=== PATIENT | male | born 1965 | race African-American/Black ===

== ENCOUNTER 2018-01-31 19:07 | Inpatient (IN) | payer OTHER ==
[2018-01-31 19:31] VITALS: BMI 21.6
[2018-01-31] MEDS ORDERED: MELATONIN 5 MG TABLETS PO PRN (22:00)
--- NOTE | 2018-01-31 22:44 | HP ---
CIWA Score - CIWA Score Nausea/Vomitin-No Nausea/No Vomiting Muscle Tremors: 3 Anxiety: 1-Mildly Anxious Agitation: 2 Paroxysmal Sweats: 2 Orientation: 1-Uncertain about Date Tacttile Disturbances: 0-None Auditory Disturbances: 0-None Visual Disturbances: 2-Mild Sensitivity Headache: 0-None Present CIWA-Ar Total Score: 11 Admission ROS BHS - HPI Chief Complaint: alcohol withdrawal sx Allergies/Adverse Reactions: Allergies Allergy/AdvReac Type Severity Reaction Status Date / Time No Known Allergies Allergy Verified 01/31/18 21:55 History of Present Illness: 52 yo male with hx of nicotine, cocaine, marijuana and alcohol dependnece is here seeking detox. PMHX: depression, insomnia, denies any other medical or psychiatric denies suicidal / homicidla dieiton or suicie attempts Last detox 10 yeras ago, [facility] Longest period of sobrierity 15 years Exam Limitations: No Limitations - Ebola screening Have you been sick,other than usual withdrawal symptoms: No - Review of Systems Constitutional: Chills, Loss of Appetite, Changes in sleep, Unintentional Wgt. Loss (20 lbs) EENT: reports: Blurred Vision (uses glasses) Respiratory: reports: No Symptoms reported Cardiac: reports: No Symptoms Reported GI: reports: No Symptoms Reported : reports: No Symptoms Reported Musculoskeletal: reports: Back Pain, Joint Pain Integumentary: reports: No Symptoms Reported Neuro: reports: No Symptoms reported Endocrine: reports: Increased Thirst Hematology: reports: No Symptoms Reported Psychiatric: reports: Orientated x3, Depressed Other Systems: Reviewed and Negative Patient History - Patient Medical History Hx Anemia: No Hx Asthma: No Hx Chronic Obstructive Pulmonary Disease (COPD): No Hx Cancer: No Hx Cardiac Disorders: No Hx Congestive Heart Failure: No Hx Hypertension: No Hx Hypercholesterolemia: No Hx Pacemaker: No HX Cerebrovascular Accident: No Hx Seizures: No Hx Dementia: No Hx Diabetes: No Hx Gastrointestinal Disorders: No Hx Liver Disease: No Hx Genitourinary Disorders: No Hx Sexually Transmitted Disorders: No Hx Renal Disease (ESRD): No Hx Thyroid Disease: No Hx Human Immunodeficiency Virus (HIV): No (Aleksandra 2018, declines testing today ) Hx Hepatitis C: No Hx Depression: Yes Hx Suicide Attempt: No Hx Bipolar Disorder: No Hx Schizophrenia: No - Patient Surgical History Past Surgical History: Yes Hx Neurologic Surgery: No Hx Cataract Extraction: No Hx Cardiac Surgery: No Hx Lung Surgery: No Hx Breast Surgery: No Hx Breast Biopsy: No Hx Abdominal Surgery: No Hx Appendectomy: No Hx Cholecystectomy: No Hx Genitourinary Surgery: No Hx Section: No Hx Orthopedic Surgery: No Other Surgical History: HERNIA REPAIR 25YRS AGO Anesthesia Reaction: No - PPD History Previous Implant?: No Documented Results: Negative w/o proof PPD to be Administered?: Yes - Reproductive History Patient is a Female of Child Bearing Age (11 -55 yrs old): No - Smoking Cessation Smoking history: Current every day smoker Have you smoked in the past 12 months: Yes Aproximately how many cigarettes per day: 10 Hx Chewing Tobacco Use: No Initiated information on smoking cessation: Yes 'Breaking Loose' booklet given: 01/31/18 - Substance & Tx. History Hx Alcohol Use: Yes Hx Substance Use: Yes Substance Use Type: Alcohol, Cocaine Hx Substance Use Treatment: Yes ([facility] 10 years ago) - Substances Abused Alcohol Route: Oral Frequency: Daily Amount used: LIQUOR- 1 PINT, BEER 1 SIX PACK Age of first use: 15 Date of Last Use: 01/31/18 Marijuana/Hashish Route: Smoking Frequency: Daily Amount used: 1 BLUNT Age of first use: 15 Date of Last Use: 01/30/18 Cocaine Route: Smoking Frequency: Daily Amount used: $80 WORTH Age of first use: 15 Date of Last Use: 01/30/18 Family Disease History - Family Disease History Family Disease History: Heart Disease: Mother (HTN), Other: Father (decrease, alcoholism ), Mother Admission Physical Exam [facility] - Vital Signs Vital Signs: Vital Signs - 24 hr 01/31/18 19:21 Temperature 96.6 F L Pulse Rate 79 Respiratory 20 Rate Blood Pressure 114/70 - Physical General Appearance: Yes: Appropriately Dressed, Thin, Tremorous, Irritable HEENTM: Yes: Within Normal Limits, EOMI, Hearing grossly Normal, Normal ENT Inspection, Normocephalic, Normal Voice, Pharynx Normal, Tm's normal Respiratory: Yes: Chest Non-Tender, Lungs Clear, Normal Breath Sounds, No Respiratory Distress, No Accessory Muscle Use Neck: Yes: Within Normal Limits Breast: Yes: Breast Exam Deferred Cardiology: Yes: Regular Rhythm, Regular Rate Abdominal: Yes: Normal Bowel Sounds, Non Tender, Flat Genitourinary: Yes: Within Normal Limits Musculoskeletal: Yes: full range of Motion, Gait Steady, Pelvis Stable, Back pain Neurological: Yes: cotton grader II-XII NML intact, Fully Oriented, Alert, Motor Strength 5/5, Depressed Affect Integumentary: Yes: Normal Color, Moist Lymphatic: Yes: Within Normal Limits Cleared for Admission [facility] - Detox or Rehab [facility] Level of Care: Medically Supervised Detox Regimen/Protocol: Librium [facility] Breath Alcohol Content Breath Alcohol Content: 0 Urine Drug Screen - Results Drug Screen Negative: No Urine Drug Screen Results: THC-Marijuana, EVONNE-Cocaine
[2018-01-31] MEDS ORDERED: chlordiazePOXIDE HCL 25 MG CAPSULE PO PRN (22:47)
[2018-01-31] MEDS ORDERED: IBUPROFEN 400 MG TABLET (FP) PO PRN (22:47)
[2018-01-31] MEDS ORDERED: MAG HYDROX/AL HYDROX/SIMETH 30 ML UNIT-DOSE CUP PO PRN (22:47)
[2018-01-31] MEDS ORDERED: chlordiazePOXIDE HCL 25 MG CAPSULE PO ONE (22:47)
[2018-01-31] MEDS ORDERED: NICOTINE POLACRILEX 2 MG GUM BC PRN (22:47)
[2018-01-31] MEDS ORDERED: ACETAMINOPHEN 325 MG TABLET (FP) PO PRN (22:47)
[2018-01-31] MEDS ORDERED: LOPERAMIDE HCL 2 MG CAPSULE PO PRN (22:47)
[2018-01-31] MEDS ORDERED: P-EPHED 60MG/TRIPROLIDI 2.5MG TABLET PO PRN (22:47)
[2018-01-31] MEDS ORDERED: MAGNESIUM HYDROX 2400MG/30ML ORAL SUSPENSION 30 ML CUP PO PRN (22:47)
[2018-01-31] MEDS ORDERED: hydrOXYzine PAMOATE 50 MG CAPSULE (FP) PO PRN (22:47)
[2018-01-31] MEDS ORDERED: guaiFENesin/D-METHORPHAN HB 10 ML UNIT-DOSE CUPS PO PRN (22:47)
[2018-01-31] MEDS ORDERED: MENTHOL/PHENOL 1 EACH UD MM PRN (22:47)
[2018-01-31] MEDS ORDERED: MAGNESIUM CITRATE 300 ML BOTTLE PO PRN (22:47)
[2018-01-31] MEDS: chlordiazePOXIDE HCL 25 MG CAPSULE PO SCH (23:54)
[2018-02-01 03:06] LABS: URINE APPEARANCE TURBID; URINE BILIRUBIN NEGATIVE (<2.0 mg/dL); URINE BLOOD NEGATIVE (NEGATIVE); URINE COLOR YELLOW; URINE GLUCOSE (UA) NEGATIVE (NEGATIVE); URINE KETONE TRACE (NEGATIVE); URINE NITRITE NEGATIVE (NEGATIVE); URINE PROTEIN NEGATIVE (NEGATIVE)
[2018-02-01 03:16] LABS: URINE LEUK ESTERASE 3+ (NEGATIVE)
[2018-02-01] MEDS: chlordiazePOXIDE HCL 25 MG CAPSULE PO SCH ×4 (05:51→23:07)
--- NOTE | 2018-02-01 10:24 | EKG ---
Test Reason : Blood Pressure : / mmHG Vent. Rate : 054 BPM Atrial Rate : 054 BPM P-R Int : 142 ms QRS Dur : 096 ms QT Int : 446 ms P-R-T Axes : 081 081 073 degrees QTc Int : 422 ms SINUS BRADYCARDIA RIGHT ATRIAL ENLARGEMENT BORDERLINE ECG NO PREVIOUS ECGS AVAILABLE Confirmed by MD NUNO, ROCHELLE ([id number]) on 02/01/2018 10:23:45 AM Referred By: Confirmed By:ROCHELLE REINA MD
[2018-02-01 10:25] LABS: HEMATOCRIT 41.6 % (35.4-49); MCH 30.8 pg (25.7-33.7); MCHC 33.7 g/dl (32.0-35.9); MEAN CELL VOLUME 91.4 fl (80-96); MEAN PLT VOLUME 7.1 fl (7.5-11.1); PLATELET COUNT 241 K/MM3 (134-434); RBC 4.55 M/mm3 (4.00-5.60); RDW 14.2 % (11.9-15.9); WHITE BLOOD COUNT 3.6 K/mm3 (4.0-10.0)
--- NOTE | 2018-02-01 10:33 | PN ---
S CIWA - CIWA Score Nausea/Vomitin-No Nausea/No Vomiting Muscle Tremors: 4-Moderate,w/Arms Extend Anxiety: 4-Mod. Anxious/Guarded Agitation: 4-Moderately Restless Paroxysmal Sweats: 1-Minimal Palms Moist Orientation: 0-Oriented Tacttile Disturbances: 0-None Auditory Disturbances: 0-None Visual Disturbances: 0-None Headache: 0-None Present CIWA-Ar Total Score: 13 BHS Progress Note (SOAP) Subjective: ANXIETY,TREMORS,BODY ACHES,FATIGUE. Objective: 02/01/18 10:32 Vital Signs Temperature 98.2 F 02/01/18 09:53 Pulse Rate 56 L 02/01/18 09:53 Respiratory Rate 18 02/01/18 09:53 Blood Pressure 95/60 02/01/18 09:53 O2 Sat by Pulse Oximetry (%) Laboratory Tests 01/31/18 02/01/18 23:30 07:30 WBC 3.6 L RBC 4.55 Hgb 14.0 Hct 41.6 MCV 91.4 MCH 30.8 MCHC 33.7 RDW 14.2 Plt Count 241 MPV 7.1 L Urine Color Yellow Urine Appearance Turbid Urine pH 5.0 Ur Specific [place] 1.030 Urine Protein Negative Urine Glucose (UA) Negative Urine Ketones Trace H Urine Blood Negative Urine Nitrite Negative Urine Bilirubin Negative Urine Urobilinogen 2.0 Ur Leukocyte Esterase 3+ H Urine WBC (Auto) None Urine RBC (Auto) None Assessment: 02/01/18 10:33 WITHDRAWAL SX Plan: CONTINUE DETOX INCREASE PO FLUIDS
[2018-02-01] MEDS: PRENATAL VITAMINS W/ FOLIC ACID TABLET (FP) PO SCH (10:38)
[2018-02-01] MEDS: NICOTINE 14 MG/24 HOURS TOPICAL PATCH TD SCH (10:38)
[2018-02-01 11:08] LABS: ANION GAP 4 (8-16); BILIRUBIN,TOTAL 0.4 mg/dL (0.2-1.0); BLOOD UREA NITROGEN 22 mg/dL (7-18); CHLORIDE 108 mmol/L (98-107); CO2 30 mmol/L (21-32); GLUCOSE,RANDOM 124 mg/dL (74-106); POTASSIUM 4.2 mmol/L (3.5-5.1); SGOT/AST 19 U/L (15-37); SGPT/ALT 29 U/L (12-78); SODIUM 142 mmol/L (136-145); TOT PROT 5.6 g/dl (6.4-8.2)
[2018-02-01 11:09] LABS: ALK PHOS 67 U/L (45-117)
[2018-02-01] MEDS: LIDOCAINE 5% TOPICAL PATCH TP SCH (12:18)
--- NOTE | 2018-02-01 13:46 | CONSULT ---
[facility] Psychiatric Consult - Data Date of interview: 02/01/18 Admission source: [facility] Identifying data: First admission to [facility] for this 52 y/o AA male seeking detox treatment on for alcohol,cannabis and cocaine (crack) dependence.Patient is ,a father of five,domiciled and currently employed. Substance Abuse History: Confirmed by patient in this session.Details in current [facility] report : Smoking history: Current every day smoker. Have you smoked in the past 12 months: Yes. Aproximately how many cigarettes per day: 10. Hx Chewing Tobacco Use: No. Initiated information on smoking cessation: Yes. 'Breaking Loose' booklet given: 01/31/18. - Substance & Tx. History. Hx Alcohol Use: Yes. Hx Substance Use: Yes. Substance Use Type: Alcohol, Cocaine. Hx Substance Use Treatment: Yes ([facility] 10 years ago). - Substances Abused. Alcohol. Route: Oral. Frequency: Daily. Amount used: LIQUOR- 1 PINT, BEER 1 SIX PACK. Age of first use: 15. Date of Last Use: 01/31. Marijuana/Hashish. Route: Smoking. Frequency: Daily. Amount used: 1 BLUNT. Age of first use: 15. Date of Last Use: 01/30/18. Cocaine. Route: Smoking. Frequency: Daily. Amount used: $80 WORTH. Age of first use: 15. Date of Last Use: 01/30/18 Medical History: Patient endorses good general health. Psychiatric History: Patient denies. Physical/Sexual Abuse/Trauma History: Patient denies. Additional Comment: Urine Drug Screen Results: THC-Marijuana, EVONNE-Cocaine.Noted. Mental Status Exam - Mental Status Exam Alert and Oriented to: Time, Place, Person Cognitive Function: Good Patient Appearance: Well Groomed Mood: Hopeful, Euthymic Affect: Appropriate, Normal Range Patient Behavior: Fatigued, Appropriate, Cooperative Speech Pattern: Clear, Appropriate Voice Loudness: Normal Thought Process: Intact, Goal Oriented Thought Disorder: Not Present Hallucinations: Denies Suicidal Ideation: Denies Homicidal Ideation: Denies Insight/Judgement: Poor Sleep: Poorly, Difficulty falling asleep Appetite: Good Muscle strength/Tone: Normal Gait/Station: Normal Psychiatric Findings - Problem List ([place] 1, 2,3) (1) Alcohol dependence with withdrawal Current Visit: Yes Status: Acute Qualifiers: Complication of substance-induced condition: uncomplicated Qualified Code(s ): F10.230 - Alcohol dependence with withdrawal, uncomplicated (2) Cocaine dependence Current Visit: Yes Status: Acute Qualifiers: Substance use status: uncomplicated Qualified Code(s): F14.20 - Cocaine dependence, uncomplicated (3) Cannabis dependence Current Visit: Yes Status: Acute (4) Nicotine dependence Current Visit: Yes Status: Acute Qualifiers: Nicotine product type: cigarettes Substance use status: in withdrawal Qualified Code(s): F17.213 - Nicotine dependence, cigarettes, with withdrawal (5) Insomnia Current Visit: Yes Status: Acute - Initial Treatment Plan Initial Treatment Plan: Psychoeducation provided in this session.Sleep hygiene.Detoxification in progress.Ambien 10 mg po hs prn.Ordered.Patient is made aware of the potential for parasomnias (sleep-walking).Mr Marquez is in agreement with this careplan.Observation.
[2018-02-01] MEDS: THIAMINE HCL 100 MG TABLET (FP) PO SCH (23:06)
[2018-02-01] MEDS: ZOLPIDEM TARTRATE 10 MG TABLET (PARK CARE ONLY) PO PRN (23:07)
[2018-02-01] MEDS: LIDOCAINE PATCH REMOVAL MC SCH (23:08)
[2018-02-02] MEDS: chlordiazePOXIDE HCL 25 MG CAPSULE PO SCH ×3 (05:20→17:50)
[2018-02-02] MEDS: NICOTINE 14 MG/24 HOURS TOPICAL PATCH TD SCH (10:51)
[2018-02-02] MEDS: LIDOCAINE 5% TOPICAL PATCH TP SCH (10:51)
[2018-02-02] MEDS: PRENATAL VITAMINS W/ FOLIC ACID TABLET (FP) PO SCH (10:51)
--- NOTE | 2018-02-02 12:15 | PN ---
[facility] CIWA - CIWA Score Nausea/Vomitin-No Nausea/No Vomiting Muscle Tremors: 4-Moderate,w/Arms Extend Anxiety: 4-Mod. Anxious/Guarded Agitation: 3 Paroxysmal Sweats: 1-Minimal Palms Moist Orientation: 0-Oriented Tacttile Disturbances: 3-Moderate Itch/Numb/Burn Auditory Disturbances: 0-None Visual Disturbances: 0-None Headache: 0-None Present CIWA-Ar Total Score: 15 S Progress Note (SOAP) Subjective: ANXIETY,SWEATS,TREMORS,INTERMITTENT SLEEP. Objective: 02/02/18 12:14 Vital Signs Temperature 97.4 F L 02/02/18 10:21 Pulse Rate 64 02/02/18 10:21 Respiratory Rate 18 02/02/18 10:21 Blood Pressure 153/100 02/02/18 10:21 O2 Sat by Pulse Oximetry (%) Laboratory Last Values WBC 3.6 K/mm3 (4.0-10.0) L 02/01/18 07:30 RBC 4.55 M/mm3 (4.00-5.60) 02/01/18 07:30 Hgb 14.0 GM/dL (11.7-16.9) 02/01/18 07:30 Hct 41.6 % (35.4-49) 02/01/18 07:30 MCV 91.4 fl (80-96) 02/01/18 07:30 MCH 30.8 pg (25.7-33.7) 02/01/18 07:30 MCHC 33.7 g/dl (32.0-35.9) 02/01/18 07:30 RDW 14.2 % (11.9-15.9) 02/01/18 07:30 Plt Count 241 K/MM3 (134-434) 02/01/18 07:30 MPV 7.1 fl (7.5-11.1) L 02/01/18 07:30 Sodium 142 mmol/L (136-145) 02/01/18 07:30 Potassium 4.2 mmol/L (3.5-5.1) 02/01/18 07:30 Chloride 108 mmol/L (98-107) H 02/01/18 07:30 Carbon Dioxide 30 mmol/L (21-32) 02/01/18 07:30 Anion Gap 4 (8-16) L 02/01/18 07:30 BUN 22 mg/dL (7-18) H 02/01/18 07:30 Creatinine 1.0 mg/dL (0.7-1.3) 02/01/18 07:30 Creat Clearance w eGFR > 60 (>60) 02/01/18 07:30 Random Glucose 124 mg/dL (74-106) H 02/01/18 07:30 Calcium 8.0 mg/dL (8.5-10.1) L 02/01/18 07:30 Total Bilirubin 0.4 mg/dL (0.2-1.0) 02/01/18 07:30 AST 19 U/L (15-37) 02/01/18 07:30 ALT 29 U/L (12-78) 02/01/18 07:30 Alkaline Phosphatase 67 U/L (45-117) 02/01/18 07:30 Total Protein 5.6 g/dl (6.4-8.2) L 02/01/18 07:30 Albumin 3.0 g/dl (3.4-5.0) L 02/01/18 07:30 Urine Color Yellow 01/31/18 23:30 Urine Appearance Turbid 01/31/18 23:30 Urine pH 5.0 (5.0-8.0) 01/31/18 23:30 Ur Specific [place] 1.030 (1.001-1.035) 01/31/18 23:30 Urine Protein Negative (NEGATIVE) 01/31/18 23:30 Urine Glucose (UA) Negative (NEGATIVE) 01/31/18 23:30 Urine Ketones Trace (NEGATIVE) H 01/31/18 23:30 Urine Blood Negative (NEGATIVE) 01/31/18 23:30 Urine Nitrite Negative (NEGATIVE) 01/31/18 23:30 Urine Bilirubin Negative (<2.0 mg/dL) 01/31/18 23:30 Urine Urobilinogen 2.0 mg/dL (0.2-1.0) 01/31/18 23:30 Ur Leukocyte Esterase 3+ (NEGATIVE) H 01/31/18 23:30 Urine WBC (Auto) None /hpf (3-5) 01/31/18 23:30 Urine RBC (Auto) None /hpf (0-3) 01/31/18 23:30 RPR Titer Nonreactive (NONREACTIVE) 02/01/18 07:30 LABS NOTED Assessment: 02/02/18 12:14 WITHDRAWAL SX Plan: CONTINUE DETOX REPEAT UA
[2018-02-02 16:57] LABS: URINE APPEARANCE SLCLOUDY; URINE BILIRUBIN NEGATIVE (<2.0 mg/dL); URINE BLOOD NEGATIVE (NEGATIVE); URINE COLOR YELLOW; URINE GLUCOSE (UA) NEGATIVE (NEGATIVE); URINE KETONE NEGATIVE (NEGATIVE); URINE NITRITE NEGATIVE (NEGATIVE); URINE PROTEIN NEGATIVE (NEGATIVE); URINE UROBILINOGEN NEGATIVE mg/dL (0.2-1.0)
[2018-02-02 17:16] LABS: URINE LEUK ESTERASE 1+ (NEGATIVE)
[2018-02-02 17:27] LABS: EPI CELLS RARE /HPF (FEW); URINE MUCUS RARE
[2018-02-02] MEDS: LIDOCAINE PATCH REMOVAL MC SCH (22:16)
[2018-02-02] MEDS: chlordiazePOXIDE 5 MG CAPSULE PO SCH (22:17)
[2018-02-02] MEDS: THIAMINE HCL 100 MG TABLET (FP) PO SCH (22:18)
[2018-02-03] MEDS: chlordiazePOXIDE 5 MG CAPSULE PO SCH ×2 (05:37→10:40)
[2018-02-03] MEDS: NICOTINE 14 MG/24 HOURS TOPICAL PATCH TD SCH (10:40)
[2018-02-03] MEDS: PRENATAL VITAMINS W/ FOLIC ACID TABLET (FP) PO SCH (10:40)
[2018-02-03] MEDS: LIDOCAINE 5% TOPICAL PATCH TP SCH (10:40)
[2018-02-03] MEDS: chlordiazePOXIDE HCL 10 MG CAPSULE PO SCH ×3 (11:07→22:11)
--- NOTE | 2018-02-03 13:07 | PN ---
BHS Progress Note (SOAP) Subjective: DECREASED ANXIETY, SWEATS. Objective: 02/03/18 13:04 Vital Signs Temperature 96.9 F L 02/03/18 09:30 Pulse Rate 77 02/03/18 09:30 Respiratory Rate 20 02/03/18 09:30 Blood Pressure 102/66 02/03/18 09:30 O2 Sat by Pulse Oximetry (%) Laboratory Tests 01/31/18 02/01/18 02/01/18 23:30 07:30 07:30 WBC 3.6 L RBC 4.55 Hgb 14.0 Hct 41.6 MCV 91.4 MCH 30.8 MCHC 33.7 RDW 14.2 Plt Count 241 MPV 7.1 L Sodium 142 Potassium 4.2 Chloride 108 H Carbon Dioxide 30 Anion Gap 4 L BUN 22 H Creatinine 1.0 Creat Clearance w eGFR > 60 Random Glucose 124 H Calcium 8.0 L Total Bilirubin 0.4 AST 19 ALT 29 Alkaline Phosphatase 67 Total Protein 5.6 L Albumin 3.0 L Urine Color Yellow Urine Appearance Turbid Urine pH 5.0 Ur Specific [place] 1.030 Urine Protein Negative Urine Glucose (UA) Negative Urine Ketones Trace H Urine Blood Negative Urine Nitrite Negative Urine Bilirubin Negative Urine Urobilinogen 2.0 Ur Leukocyte Esterase 3+ H Urine WBC (Auto) None Urine RBC (Auto) None Ur Epithelial Cells Urine Mucus RPR Titer 02/01/18 02/02/18 07:30 13:20 WBC RBC Hgb Hct MCV MCH MCHC RDW Plt Count MPV Sodium Potassium Chloride Carbon Dioxide Anion Gap BUN Creatinine Creat Clearance w eGFR Random Glucose Calcium Total Bilirubin AST ALT Alkaline Phosphatase Total Protein Albumin Urine Color Yellow Urine Appearance Slcloudy Urine pH 7.0 D Ur Specific [place] 1.020 Urine Protein Negative Urine Glucose (UA) Negative Urine Ketones Negative Urine Blood Negative Urine Nitrite Negative Urine Bilirubin Negative Urine Urobilinogen Negative Ur Leukocyte Esterase 1+ H D Urine WBC (Auto) 44 Urine RBC (Auto) 5 Ur Epithelial Cells Rare Urine Mucus Rare RPR Titer Nonreactive LABS NOTED. Assessment: 02/03/18 13:05 WITHDRAWAL SX Plan: CONTINUE DETOX
[2018-02-03] MEDS: LIDOCAINE PATCH REMOVAL MC SCH (22:11)
[2018-02-03] MEDS: THIAMINE HCL 100 MG TABLET (FP) PO SCH (22:11)
[2018-02-03] MEDS: ZOLPIDEM TARTRATE 10 MG TABLET (PARK CARE ONLY) PO PRN (22:13)
[2018-02-03] MEDS ORDERED: chlordiazePOXIDE HCL 10 MG CAPSULE PO SCH (23:00)
[2018-02-04] MEDS: chlordiazePOXIDE HCL 10 MG CAPSULE PO SCH (07:00)
[2018-02-04 09:12] VITALS: BP 115/80; PULSE 98; TEMP 98.5
--- NOTE | 2018-02-04 12:30 | DS ---
[facility] Detox Discharge Summary Admission Date: 01/31/18 Discharge Date: 02/04/18 - History Present History: Alcohol Dependence, Cocaine Dependence Additional Comments: DETOX COMPLETED. Pertinent Past History: PLEASE SEE DX BELOW - Physical Exam Results Vital Signs: Vital Signs Temperature 98.5 F 02/04/18 09:11 Pulse Rate 98 H 02/04/18 09:11 Respiratory Rate 20 02/04/18 09:11 Blood Pressure 115/80 02/04/18 09:11 O2 Sat by Pulse Oximetry (%) Pertinent Admission Physical Exam Findings: WITHDRAWAL SX Laboratory Tests 01/31/18 02/01/18 02/01/18 23:30 07:30 07:30 WBC 3.6 L RBC 4.55 Hgb 14.0 Hct 41.6 MCV 91.4 MCH 30.8 MCHC 33.7 RDW 14.2 Plt Count 241 MPV 7.1 L Sodium 142 Potassium 4.2 Chloride 108 H Carbon Dioxide 30 Anion Gap 4 L BUN 22 H Creatinine 1.0 Creat Clearance w eGFR > 60 Random Glucose 124 H Calcium 8.0 L Total Bilirubin 0.4 AST 19 ALT 29 Alkaline Phosphatase 67 Total Protein 5.6 L Albumin 3.0 L Urine Color Yellow Urine Appearance Turbid Urine pH 5.0 Ur Specific [place] 1.030 Urine Protein Negative Urine Glucose (UA) Negative Urine Ketones Trace H Urine Blood Negative Urine Nitrite Negative Urine Bilirubin Negative Urine Urobilinogen 2.0 Ur Leukocyte Esterase 3+ H Urine WBC (Auto) None Urine RBC (Auto) None Ur Epithelial Cells Urine Mucus RPR Titer 02/01/18 02/02/18 07:30 13:20 WBC RBC Hgb Hct MCV MCH MCHC RDW Plt Count MPV Sodium Potassium Chloride Carbon Dioxide Anion Gap BUN Creatinine Creat Clearance w eGFR Random Glucose Calcium Total Bilirubin AST ALT Alkaline Phosphatase Total Protein Albumin Urine Color Yellow Urine Appearance Slcloudy Urine pH 7.0 D Ur Specific [place] 1.020 Urine Protein Negative Urine Glucose (UA) Negative Urine Ketones Negative Urine Blood Negative Urine Nitrite Negative Urine Bilirubin Negative Urine Urobilinogen Negative Ur Leukocyte Esterase 1+ H D Urine WBC (Auto) 44 Urine RBC (Auto) 5 Ur Epithelial Cells Rare Urine Mucus Rare RPR Titer Nonreactive - Treatment Hospital Course: Detox Protocol Followed, Detoxed Safely, Responded well, Discharged Condition Good - Medication Discharge Medications: Ambulatory Orders NK [No Known Home Medication] 01/31/18 - Diagnosis (1) Alcohol dependence with withdrawal Status: Acute Qualifiers: Complication of substance-induced condition: uncomplicated Qualified Code(s ): F10.230 - Alcohol dependence with withdrawal, uncomplicated (2) Back pain Status: Chronic Qualifiers: Back pain location: low back pain (3) Cocaine dependence Status: Acute Qualifiers: Substance use status: uncomplicated Qualified Code(s): F14.20 - Cocaine dependence, uncomplicated (4) Nicotine dependence Status: Acute Qualifiers: Nicotine product type: cigarettes Substance use status: in withdrawal Qualified Code(s): F17.213 - Nicotine dependence, cigarettes, with withdrawal (5) Weight loss Status: Acute - AMA Did Patient Leave Against Medical Advice: No
== END 2018-02-04 09:09 | disposition home or self-care (01) | DRG 775 ==
LOC: YASAS 19:07 → Y3N 21:52
PROVIDERS: ADMIT Internal Medicine; ATTEND Internal Medicine
PROC: HZ2ZZZZ Detoxification Services for Substance Abuse Treatment (ICD-10-PCS; principal; 2018-01-31)
DX: F10.230 Alcohol dependence with withdrawal, uncomplicated (principal); F12.20 Cannabis dependence, uncomplicated; F17.210 Nicotine dependence, cigarettes, uncomplicated; F32.9 Major depressive disorder, single episode, unspecified; G47.00 Insomnia, unspecified; M54.5 Low back pain; R63.4 Abnormal weight loss; Z68.21 Body mass index [BMI] 21.0-21.9, adult
CPT/HCPCS: 36415; 80053; 81003; 81015; 85027; 86593; 93005; 93010

== ENCOUNTER 2019-04-30 13:03 | Inpatient (IN) | payer SELFPAY ==
[2019-04-30 14:10] VITALS: BMI 24.0
--- NOTE | 2019-04-30 16:27 | HP ---
CIWA Score Nausea/Vomitin-Mild Nausea/No Vomiting Muscle Tremors: 2 Anxiety: 2 Agitation: 2 Paroxysmal Sweats: 2 Orientation: 0-Oriented Tacttile Disturbances: 0-None Auditory Disturbances: 1-Very Mild Visual Disturbances: 1-Very Mild Sensitivity Headache: 1-Very Mild CIWA-Ar Total Score: 12 - Admission Criteria [facility]ASAS Guidelines: Admission for Medically Managed Detox: Requires at least one of the followin. CIWA greater than 12 2. Seizures within the past 24 hours 3. Delirium tremens within the past 24 hours 4. Hallucinations within the past 24 hours 5. Acute intervention needed for co occurring medical disorder 6. Acute intervention needed for co occurring psychiatric disorder 7. Severe withdrawal that cannot be handled at a lower level of care (continued vomiting, continued diarrhea, abnormal vital signs) requiring intravenous medication and/or fluids 8. Patient presents the following: CIWA greater than 12 Admission Criteria Met: Admission criteria met Admission ROS BHS - HPI Chief Complaint: i need to do this Allergies/Adverse Reactions: Allergies Allergy/AdvReac Type Severity Reaction Status Date / Time No Known Allergies Allergy Verified 04/30/19 13:55 History of Present Illness: 53 YO MALE WITH >20 Y CUMULATIVE ABSTINENCE FROM SUBSTANCES PRESENTS WITH 1 Y PERIOD OF ETOH AND COCAINE USE SP RELAPSE USING 60$ COCAINE AND 8 BERRS DAILY STEADY PATTERN - Ebola screening Have you traveled outside of the country in the last 21 days: No (N) Have you had contact with anyone from an Ebola affected area: No Do you have a fever: No - Review of Systems Constitutional: Unintentional Wgt. Loss EENT: reports: No Symptoms Reported Respiratory: reports: No Symptoms reported Cardiac: reports: No Symptoms Reported GI: reports: Nausea : reports: No Symptoms Reported Musculoskeletal: reports: No Symptoms Reported Integumentary: reports: No Symptoms Reported Neuro: reports: No Symptoms reported Endocrine: reports: No Symptoms Reported Hematology: reports: No Symptoms Reported Psychiatric: reports: Anxious Patient History - Patient Medical History Hx Anemia: No Hx Asthma: No Hx Chronic Obstructive Pulmonary Disease (COPD): No Hx Cancer: No Hx Cardiac Disorders: No Hx Congestive Heart Failure: No Hx Hypertension: No Hx Hypercholesterolemia: No Hx Pacemaker: No HX Cerebrovascular Accident: No Hx Seizures: No Hx Dementia: No Hx Diabetes: No Hx Gastrointestinal Disorders: No Hx Liver Disease: No Hx Genitourinary Disorders: No Hx Sexually Transmitted Disorders: No Hx Renal Disease (ESRD): No Hx Thyroid Disease: No Hx Human Immunodeficiency Virus (HIV): No (Aleksandra 2018, declines testing today ) Hx Hepatitis C: No Hx Depression: Yes Hx Suicide Attempt: No Hx Bipolar Disorder: No Hx Schizophrenia: No - Patient Surgical History Past Surgical History: Yes Hx Neurologic Surgery: No Hx Cataract Extraction: No Hx Cardiac Surgery: No Hx Lung Surgery: No Hx Breast Surgery: No Hx Breast Biopsy: No Hx Abdominal Surgery: No Hx Appendectomy: No Hx Cholecystectomy: No Hx Genitourinary Surgery: No Hx Section: No Hx Orthopedic Surgery: No Other Surgical History: HERNIA REPAIR 25YRS AGO Anesthesia Reaction: No - PPD History Previous Implant?: Yes Date: 02/02/18 - Smoking Cessation Smoking history: Current every day smoker Have you smoked in the past 12 months: Yes Aproximately how many cigarettes per day: 10 Hx Chewing Tobacco Use: No Initiated information on smoking cessation: Yes 'Breaking Loose' booklet given: 04/30/19 - Substances abused Alcohol Substance route: Oral Frequency: Daily Amount used: 1 pint of vodka,7 cans of 12 oz beers Age of first use: 15 Date of last use: 04/30/19 Crack Substance route: Smoking Frequency: Daily Amount used: $60/day Age of first use: 19 Date of last use: 04/29/19 Family Disease History - Family Disease History Family Disease History: Heart Disease: Mother (HTN), Other: Father (decrease, alcoholism ), Mother Admission Physical Exam BHS - Vital Signs Vital Signs: Vital Signs - 24 hr 04/30/19 04/30/19 13:54 15:02 Temperature 98.5 F 98.5 F Pulse Rate 67 67 Respiratory 18 18 Rate Blood Pressure 109/72 109/72 - Physical General Appearance: Yes: Anxious HEENTM: Yes: EOMI Respiratory: Yes: Lungs Clear Neck: Yes: No masses,lesions,Nodules Breast: Yes: Breast Exam Deferred Cardiology: Yes: Within Normal Limits Abdominal: Yes: Within Normal Limits Genitourinary: Yes: Within Normal Limits Back: Yes: Within Normal Limits Musculoskeletal: Yes: Within Normal Limits Extremities: Yes: Within Normal Limits Neurological: Yes: Within Normal Limits Integumentary: Yes: Within Normal Limits - Diagnostic (1) Alcohol dependence with withdrawal Current Visit: Yes Status: Acute Qualifiers: (2) Cocaine dependence Current Visit: Yes Status: Acute Qualifiers: (3) Nicotine dependence Current Visit: Yes Status: Acute Qualifiers: (4) Weight loss Current Visit: No Status: Acute Cleared for Admission BHS - Detox or Rehab [facility] Level of Care: Medically Supervised Breathalyzer - Breathalyzer Breathalyzer: 0.004 Urine Drug Screen - Test Device Lot number: [id number] Expiration date: 02/07/21 - Control Is test valid?: Yes - Results Drug screen NEGATIVE: No Urine drug screen results: THC-Marijuana, EVONNE-Cocaine, BZO-Benzodiazepines Inpatient Rehab Admission - Rehab Decision to Admit Inpatient rehab admission?: No
[2019-04-30] MEDS ORDERED: MAG HYDROX/AL HYDROX/SIMETH 30 ML UNIT-DOSE CUP PO PRN (16:31)
[2019-04-30] MEDS ORDERED: MAGNESIUM CITRATE 300 ML BOTTLE PO PRN (16:31)
[2019-04-30] MEDS ORDERED: hydrOXYzine PAMOATE 25 MG CAPSULE (FP) PO PRN (16:31)
[2019-04-30] MEDS ORDERED: ACETAMINOPHEN 325 MG TABLET (FP) PO PRN ×2 (16:31)
[2019-04-30] MEDS ORDERED: METHOCARBAMOL 500 MG TABLET PO PRN (16:31)
[2019-04-30] MEDS ORDERED: MAGNESIUM HYDROX 2400MG/30ML ORAL SUSPENSION 30 ML CUP PO PRN (16:31)
[2019-04-30] MEDS ORDERED: IBUPROFEN 400 MG TABLET (FP) PO PRN (16:31)
[2019-04-30] MEDS ORDERED: chlordiazePOXIDE HCL 25 MG CAPSULE PO PRN (16:31)
[2019-04-30] MEDS ORDERED: MENTHOL/PHENOL 1 EACH UD MM PRN (16:31)
[2019-04-30] MEDS ORDERED: BISMUTH SUBSALICYLATE 524 MG/30 ML UD PO PRN (16:31)
[2019-04-30] MEDS: NICOTINE 14 MG/24 HOURS TOPICAL PATCH TD SCH (17:31)
[2019-04-30] MEDS: chlordiazePOXIDE HCL 25 MG CAPSULE PO SCH ×2 (17:31→22:37)
[2019-04-30] MEDS: THIAMINE HCL 100 MG TABLET (FP) PO SCH (22:37)
[2019-05-01] MEDS: chlordiazePOXIDE HCL 25 MG CAPSULE PO SCH ×4 (07:30→22:16)
[2019-05-01] MEDS: PRENATAL VITAMINS W/ FOLIC ACID TABLET (FP) PO SCH (10:45)
[2019-05-01] MEDS: NICOTINE 14 MG/24 HOURS TOPICAL PATCH TD SCH (10:46)
--- NOTE | 2019-05-01 11:23 | PN ---
[facility] CIWA - CIWA Score Nausea/Vomitin-Mild Nausea/No Vomiting Muscle Tremors: 3 Anxiety: 1-Mildly Anxious Agitation: 2 Paroxysmal Sweats: 1-Minimal Palms Moist Orientation: 1-Uncertain about Date Tacttile Disturbances: 1-Very Mild Itch/Numbness Auditory Disturbances: 0-None Visual Disturbances: 0-None Headache: 0-None Present CIWA-Ar Total Score: 10 S Progress Note (SOAP) Subjective: 53 years old male admtted on 04/30/19 for acute alcohol withdrawal sx management doing well with librium detox protocol feeling tired tremor low energy Objective: 05/01/19 11:26 Vital Signs Temperature 97.9 F 05/01/19 10:00 Pulse Rate 83 05/01/19 10:00 Respiratory Rate 18 05/01/19 10:00 Blood Pressure 113/73 05/01/19 10:00 O2 Sat by Pulse Oximetry (%) 05/01/19 11:27 lab pending Assessment: 05/01/19 11:27 alcohol withdrawal sx Plan: continue alcohol detox
[2019-05-01 12:13] LABS: ALBUMIN 3.2 g/dl (3.4-5.0); BILIRUBIN,TOTAL 0.2 mg/dL (0.2-1); CALCIUM 8.3 mg/dL (8.5-10.1); CREATININE 0.9 mg/dL (0.55-1.3); HEMATOCRIT 43.2 % (35.4-49); HEMOGLOBIN 14.3 GM/dL (11.7-16.9); MCH 30.8 pg (25.7-33.7); MCHC 33.1 g/dl (32.0-35.9); MEAN PLT VOLUME 7.3 fl (7.5-11.1); PLATELET COUNT 273 K/MM3 (134-434); POTASSIUM 4.5 mmol/L (3.5-5.1); RBC 4.65 M/mm3 (4.00-5.60); RDW 14.7 % (11.9-15.9); WHITE BLOOD COUNT 4.7 K/mm3 (4.0-10.0)
[2019-05-01] MEDS: THIAMINE HCL 100 MG TABLET (FP) PO SCH (22:16)
[2019-05-01] MEDS: MELATONIN 5 MG TABLETS PO PRN (22:17)
[2019-05-02] MEDS: chlordiazePOXIDE HCL 25 MG CAPSULE PO SCH ×4 (05:48→22:47)
[2019-05-02] MEDS: PRENATAL VITAMINS W/ FOLIC ACID TABLET (FP) PO SCH (10:57)
[2019-05-02] MEDS: NICOTINE 14 MG/24 HOURS TOPICAL PATCH TD SCH (10:57)
--- NOTE | 2019-05-02 12:43 | PN ---
S CIWA - CIWA Score Nausea/Vomitin-No Nausea/No Vomiting Muscle Tremors: 3 Anxiety: 1-Mildly Anxious Agitation: 2 Paroxysmal Sweats: 1-Minimal Palms Moist Orientation: 0-Oriented Tacttile Disturbances: 1-Very Mild Itch/Numbness Auditory Disturbances: 0-None Visual Disturbances: 0-None Headache: 1-Very Mild CIWA-Ar Total Score: 9 S Progress Note (SOAP) Subjective: 53 years old male admitted on 04/30/19 for acute alcohol withdrawal sx management mild tremor tolerate food and fluid well doing ok with librium detox protocol discuss the opportunity of aftercare at [facility] Objective: 05/02/19 12:46 Vital Signs Temperature 96.9 F L 05/02/19 09:24 Pulse Rate 71 05/02/19 09:24 Respiratory Rate 18 05/02/19 09:24 Blood Pressure 101/62 05/02/19 09:24 O2 Sat by Pulse Oximetry (%) Laboratory Last Values WBC 4.7 K/mm3 (4.0-10.0) 05/01/19 07:00 RBC 4.65 M/mm3 (4.00-5.60) 05/01/19 07:00 Hgb 14.3 GM/dL (11.7-16.9) 05/01/19 07:00 Hct 43.2 % (35.4-49) 05/01/19 07:00 MCV 93.0 fl (80-96) 05/01/19 07:00 MCH 30.8 pg (25.7-33.7) 05/01/19 07:00 MCHC 33.1 g/dl (32.0-35.9) 05/01/19 07:00 RDW 14.7 % (11.9-15.9) 05/01/19 07:00 Plt Count 273 K/MM3 (134-434) 05/01/19 07:00 MPV 7.3 fl (7.5-11.1) L 05/01/19 07:00 Sodium 141 mmol/L (136-145) 05/01/19 07:00 Potassium 4.5 mmol/L (3.5-5.1) 05/01/19 07:00 Chloride 108 mmol/L (98-107) H 05/01/19 07:00 Carbon Dioxide 29 mmol/L (21-32) 05/01/19 07:00 Anion Gap 5 MMOL/L (8-16) L 05/01/19 07:00 BUN 16.0 mg/dL (7-18) 05/01/19 07:00 Creatinine 0.9 mg/dL (0.55-1.3) 05/01/19 07:00 Est GFR (CKD-EPI)AfAm 113.41 05/01/19 07:00 Est GFR (CKD-EPI)NonAf 97.85 05/01/19 07:00 Random Glucose 99 mg/dL (74-106) 05/01/19 07:00 Calcium 8.3 mg/dL (8.5-10.1) L 05/01/19 07:00 Total Bilirubin 0.2 mg/dL (0.2-1) 05/01/19 07:00 AST 10 U/L (15-37) L 05/01/19 07:00 ALT 22 U/L (13-61) 05/01/19 07:00 Alkaline Phosphatase 98 U/L (45-117) 05/01/19 07:00 Total Protein 6.0 g/dl (6.4-8.2) L 05/01/19 07:00 Albumin 3.2 g/dl (3.4-5.0) L 05/01/19 07:00 RPR Titer Nonreactive (NONREACTIVE) 05/01/19 07:00 lab noted Assessment: 05/02/19 12:47 alcohol withdrawal sx Plan: continue alcohol detox
[2019-05-02] MEDS: THIAMINE HCL 100 MG TABLET (FP) PO SCH (22:47)
[2019-05-03] MEDS ORDERED: chlordiazePOXIDE HCL 10 MG CAPSULE PO PRN
[2019-05-03] MEDS: chlordiazePOXIDE HCL 10 MG CAPSULE PO SCH ×4 (05:40→22:11)
[2019-05-03] MEDS: PRENATAL VITAMINS W/ FOLIC ACID TABLET (FP) PO SCH (10:27)
[2019-05-03] MEDS: NICOTINE 14 MG/24 HOURS TOPICAL PATCH TD SCH (10:27)
--- NOTE | 2019-05-03 12:52 | PN ---
[facility] CIWA - CIWA Score Nausea/Vomitin-No Nausea/No Vomiting Muscle Tremors: 2 Anxiety: 1-Mildly Anxious Agitation: 2 Paroxysmal Sweats: No Perspiration Orientation: 0-Oriented Tacttile Disturbances: 0-None Auditory Disturbances: 0-None Visual Disturbances: 0-None Headache: 0-None Present CIWA-Ar Total Score: 5 S Progress Note (SOAP) Subjective: feeling better today tolerate food and fluid well good hygiene reported right upper eye lid "a bump" began around 04/28/19 denies pain denies alteration of vision denies trouble close or open right eye right upper eye lid 5 mm round redness raised bump noted no discharge none tender hordeolum warm compress do not irritate the lump if getting worse inform provider or seek ophthelmologist Objective: 05/03/19 12:55 Vital Signs Temperature 97.6 F 05/03/19 09:06 Pulse Rate 75 05/03/19 09:06 Respiratory Rate 18 05/03/19 09:06 Blood Pressure 102/61 05/03/19 09:06 O2 Sat by Pulse Oximetry (%) Laboratory Last Values WBC 4.7 K/mm3 (4.0-10.0) 05/01/19 07:00 RBC 4.65 M/mm3 (4.00-5.60) 05/01/19 07:00 Hgb 14.3 GM/dL (11.7-16.9) 05/01/19 07:00 Hct 43.2 % (35.4-49) 05/01/19 07:00 MCV 93.0 fl (80-96) 05/01/19 07:00 MCH 30.8 pg (25.7-33.7) 05/01/19 07:00 MCHC 33.1 g/dl (32.0-35.9) 05/01/19 07:00 RDW 14.7 % (11.9-15.9) 05/01/19 07:00 Plt Count 273 K/MM3 (134-434) 05/01/19 07:00 MPV 7.3 fl (7.5-11.1) L 05/01/19 07:00 Sodium 141 mmol/L (136-145) 05/01/19 07:00 Potassium 4.5 mmol/L (3.5-5.1) 05/01/19 07:00 Chloride 108 mmol/L (98-107) H 05/01/19 07:00 Carbon Dioxide 29 mmol/L (21-32) 05/01/19 07:00 Anion Gap 5 MMOL/L (8-16) L 05/01/19 07:00 BUN 16.0 mg/dL (7-18) 05/01/19 07:00 Creatinine 0.9 mg/dL (0.55-1.3) 05/01/19 07:00 Est GFR (CKD-EPI)AfAm 113.41 05/01/19 07:00 Est GFR (CKD-EPI)NonAf 97.85 05/01/19 07:00 Random Glucose 99 mg/dL (74-106) 05/01/19 07:00 Calcium 8.3 mg/dL (8.5-10.1) L 05/01/19 07:00 Total Bilirubin 0.2 mg/dL (0.2-1) 05/01/19 07:00 AST 10 U/L (15-37) L 05/01/19 07:00 ALT 22 U/L (13-61) 05/01/19 07:00 Alkaline Phosphatase 98 U/L (45-117) 05/01/19 07:00 Total Protein 6.0 g/dl (6.4-8.2) L 05/01/19 07:00 Albumin 3.2 g/dl (3.4-5.0) L 05/01/19 07:00 RPR Titer Nonreactive (NONREACTIVE) 05/01/19 07:00 lab noted Assessment: 05/03/19 12:55 alcohol withdrawal sx Plan: continue alcohol detox
[2019-05-03] MEDS: MELATONIN 5 MG TABLETS PO PRN (22:11)
[2019-05-03] MEDS: THIAMINE HCL 100 MG TABLET (FP) PO SCH (22:11)
[2019-05-04] MEDS ORDERED: chlordiazePOXIDE HCL 10 MG CAPSULE PO SCH (05:00)
[2019-05-04 09:42] VITALS: BP 109/68; PULSE 75; TEMP 97.2
[2019-05-04] MEDS: PRENATAL VITAMINS W/ FOLIC ACID TABLET (FP) PO SCH (10:41)
[2019-05-04] MEDS: NICOTINE 14 MG/24 HOURS TOPICAL PATCH TD SCH (10:42)
--- NOTE | 2019-05-04 16:41 | DS ---
[facility] Detox Discharge Summary Admission Date: 04/30/19 Discharge Date: 05/04/19 - History Present History: Alcohol Dependence Additional Comments: 53 years old male admitted on 04/30/19 for alcohol withdrawal sx no complication throughout the detox staty alert oriented x 3 no shortness of breath denies dizziness - Physical Exam Results Vital Signs: Vital Signs Temperature 97.2 F L 05/04/19 09:40 Pulse Rate 75 05/04/19 09:40 Respiratory Rate 18 05/04/19 09:40 Blood Pressure 109/68 05/04/19 09:40 O2 Sat by Pulse Oximetry (%) Pertinent Admission Physical Exam Findings: alcohol withdrawal sx Laboratory Last Values WBC 4.7 K/mm3 (4.0-10.0) 05/01/19 07:00 RBC 4.65 M/mm3 (4.00-5.60) 05/01/19 07:00 Hgb 14.3 GM/dL (11.7-16.9) 05/01/19 07:00 Hct 43.2 % (35.4-49) 05/01/19 07:00 MCV 93.0 fl (80-96) 05/01/19 07:00 MCH 30.8 pg (25.7-33.7) 05/01/19 07:00 MCHC 33.1 g/dl (32.0-35.9) 05/01/19 07:00 RDW 14.7 % (11.9-15.9) 05/01/19 07:00 Plt Count 273 K/MM3 (134-434) 05/01/19 07:00 MPV 7.3 fl (7.5-11.1) L 05/01/19 07:00 Sodium 141 mmol/L (136-145) 05/01/19 07:00 Potassium 4.5 mmol/L (3.5-5.1) 05/01/19 07:00 Chloride 108 mmol/L (98-107) H 05/01/19 07:00 Carbon Dioxide 29 mmol/L (21-32) 05/01/19 07:00 Anion Gap 5 MMOL/L (8-16) L 05/01/19 07:00 BUN 16.0 mg/dL (7-18) 05/01/19 07:00 Creatinine 0.9 mg/dL (0.55-1.3) 05/01/19 07:00 Est GFR (CKD-EPI)AfAm 113.41 05/01/19 07:00 Est GFR (CKD-EPI)NonAf 97.85 05/01/19 07:00 Random Glucose 99 mg/dL (74-106) 05/01/19 07:00 Calcium 8.3 mg/dL (8.5-10.1) L 05/01/19 07:00 Total Bilirubin 0.2 mg/dL (0.2-1) 05/01/19 07:00 AST 10 U/L (15-37) L 05/01/19 07:00 ALT 22 U/L (13-61) 05/01/19 07:00 Alkaline Phosphatase 98 U/L (45-117) 05/01/19 07:00 Total Protein 6.0 g/dl (6.4-8.2) L 05/01/19 07:00 Albumin 3.2 g/dl (3.4-5.0) L 05/01/19 07:00 RPR Titer Nonreactive (NONREACTIVE) 05/01/19 07:00 lab noted - Treatment Hospital Course: Detox Protocol Followed, Detoxed Safely, Responded well, Discharged Condition Good, Rehab Referral Accepted Patient has Accepted a Rehab Referral to: [facility] - Medication Discharge Medications: Ambulatory Orders NK [No Known Home Medication] 01/31/18 - Diagnosis (1) Alcohol dependence with withdrawal Status: Acute Qualifiers: Complication of substance-induced condition: uncomplicated (2) Nicotine dependence Status: Acute Qualifiers: Nicotine product type: cigarettes Substance use status: in withdrawal Qualified Code(s): F17.213 - Nicotine dependence, cigarettes, with withdrawal - AMA Did Patient Leave Against Medical Advice: No
[2019-05-05] MEDS ORDERED: chlordiazePOXIDE HCL 10 MG CAPSULE PO ONE (05:00)
== END 2019-05-04 12:30 | disposition home or self-care (01) | DRG 774 ==
LOC: YASAS 13:03 → Y3N 16:58
PROVIDERS: ADMIT Surgery; ATTEND Surgery
PROC: HZ2ZZZZ Detoxification Services for Substance Abuse Treatment (ICD-10-PCS; principal; 2019-04-30)
DX: F10.230 Alcohol dependence with withdrawal, uncomplicated (principal); F14.20 Cocaine dependence, uncomplicated; F17.213 Nicotine dependence, cigarettes, with withdrawal; R63.4 Abnormal weight loss
CPT/HCPCS: 36415; 80053; 85027; 86593